=== PATIENT | male | born 1980 | race Caucasian/White ===

== ENCOUNTER 2016-07-20 22:08 | Emergency (ER) | payer SELFPAY ==
[2016-07-20 23:20] LABS: BASOPHIL# 0.1 X10e3 (0-0.3); BASOPHIL% 0.4 % (0-2.5); EOSINOPHIL% 0.3 % (0.0-7.0); HEMATOCRIT 39.7 % (38.0-50.0); HEMOGLOBIN 13.1 gm/dL (13.0-16.0); LYMPHOCYTE# 1.1 X10e3 (1.0-3.5); LYMPHOCYTE% 5.9 % (17.0-45.0); MEAN CELL VOLUME 91.9 FL (83-96); MEAN CORPUSCULAR HEMOGLOBIN 30.3 PG (28-34); MEAN PLATELET VOLUME 8.5 FL (6.5-11.5); MONOCYTE# 1.3 X10e3 (0-1.0); MONOCYTE% 6.6 % (3.0-12.0); NEUTROPHIL# 16.7 X10e3 (1.5-7.1); NEUTROPHIL% 86.8 % (40-75); PLATELET COUNT 197 X10e3 (140-420); RED BLOOD COUNT 4.32 X10e (3.90-5.60); RED CELL DISTRIBUTION WIDTH 13.6 % (11.0-15.5); WHITE BLOOD COUNT 19.2 X10e3 (4.0-10.5)
[2016-07-20 23:21] LABS: DIFF IND NO
[2016-07-20 23:37] LABS: ALBUMIN SERUM 3.7 g/dL (3.5-5.0); BILIRUBIN,TOTAL 1.2 mg/dL (0.2-2.0); CALCIUM SERUM 8.4 mg/dL (8.4-10.2); GLOM FILT RATE Estimated 95.1 mL/min (>60); POTASSIUM 3.2 mmol/L (3.5-5.1); PROTEIN TOTAL SERUM 6.4 g/dL (6.0-8.3)
[2016-07-20 23:42] LABS: AMPHETAMINE POS (NEG); BARBITURATES NEG (NEG); BENZODIAZEPINES NEG (NEG); COCAINE NEG (NEG); MARIJUANA POS (NEG); OPIATES NEG (NEG); TRICYCLIC ANTIDEPRESSANTS NEG (NEG); U METHADONE NEG (NEG)
== END 2016-07-21 03:40 | disposition hospice, home (50) ==
LOC: SED 22:08
PROVIDERS: Nurse Practitioner
DX: L03.113 Cellulitis of right upper limb (principal); Z88.1 Allergy status to other antibiotic agents; Z88.2 Allergy status to sulfonamides
CPT/HCPCS: 36415; 80053; 80307; 83605; 85025; 87040; 96374; 96375; 99285; J1885

== ENCOUNTER 2016-08-30 15:55 | Inpatient (IN) | payer OTHER ==
--- NOTE | ~2016-08-30 | HP ---
Unit #: [id number] #: [id number] Patient: PRICILA BRAR [id number] [place] [address] [id number] MR#: [id number] NAME: PRICILA BRAR. ROOM: P204 Age: 36 Sex: M Admission Date: 08/30/2016 : 1980 Attending Physician: Stephen Rod M.D. Admitting Physician: Stephen Rod M.D. Primary Care Physician: Primary Care Physician No HISTORY AND PHYSICAL HISTORY OF PRESENT ILLNESS Patient is a 36-year-old male admitted to [address] [place] [address] on 08/30/2016 for heroin abuse. PAST MEDICAL HISTORY Polysubstance abuse. PAST SURGICAL HISTORY I and D of an abscess. ALLERGIES Bactrim. SOCIAL HISTORY Patient is unemployed. He denies alcohol and tobacco use. He uses heroin, methamphetamines and benzodiazepines on a daily basis. FAMILY HISTORY Noncontributory. REVIEW OF SYSTEMS CONSTITUTIONAL: No fever or chills. HEENT: Denies any sore throat, ear pain or runny nose. CARDIOVASCULAR: Denies chest pain, irregular heart rhythm or palpitations. CHEST: Denies shortness of breath or cough. No hemoptysis. GASTROINTESTINAL: Denies nausea, vomiting, diarrhea or chronic constipation. ENDOCRINE: Denies history of increased thirst or urination. No recent significant weight loss or gain. GENITOURINARY: Denies dysuria, frequency, or hematuria. SKIN: Denies any rashes. HEMATOLOGIC: Denies history of increased bleeding or bruising. MUSCULOSKELETAL: Denies any hot, swollen joints. No generalized muscle pain. NEUROLOGIC: Denies problems with vision or speech. No frequent, severe headaches. No numbness, tingling or weakness in any extremities. Denies loss of bladder or bowel control. CURRENT MEDICATIONS Patient is not on any home medications. PHYSICAL EXAMINATION GENERAL: He is awake, alert, oriented, in no acute distress. Unit #: [id number] #: [id number] Patient: PRICILA BRAR VITAL SIGNS: Temperature 99.1, heart rate 115, respirations 20, blood pressure 134/85. HEIGHT: 5 feet 10. WEIGHT: 200 pounds. SKIN: He has a bandage on his right arm. HEENT: Normocephalic. TMs not viewed. Oral and nasal passages clear. Conjunctivae clear. PERRLA. EOMs intact. NECK: Supple without lymphadenopathy or thyromegaly. HEART: Regular rate and rhythm without murmur. LUNGS: Clear. ABDOMEN: Soft, nontender. : Not done. EXTREMITIES: No evidence of cyanosis, clubbing or edema. Moves all without focal deficit. NEUROLOGICAL: Grossly within normal limits. Cranial Nerves: II: Visual argueta are intact. III, IV AND : Extraocular movements are intact. Pupils are equal, round and reactive to light. V: Facial sensation is grossly normal. VII: Facial movements and expression are normal. VIII: Auditory acuity grossly intact. IX, X: Uvula is midline. Phonation is normal. XI: Patient shrugs shoulders and turns head normally. XII: Tongue protrudes in the midline. Sensory and Motor Function: Sensory and motor sensation is grossly normal. Motor: moves all extremities well. Coordination: Gait is normal. Deep Tendon Reflexes: Intact. IMPRESSION 1. Psychiatric admission. 2. Polysubstance abuse. RECOMMENDATIONS PSYCHIATRIC: Per psychiatrist. MEDICAL: No contraindications to participate in facility's activities. MEDICAL PROGNOSIS Good. MEDICAL CONDITION Stable. Dictated by... Reinaldo Hu/ortega TD: 08/31/2016 18:02 JOB #: [id number] Unit #: [id number] #: [id number] Patient: PRICILA BRAR HISTORY AND PHYSICAL Page 1 of 1 X TAMI LEMUS APRN HISTORY AND PHYSICAL
--- NOTE | ~2016-08-30 | DS ---
Unit #: [id number] #: [id number] Patient: PRICILA BOOTH [id number] [facility] [address] [place] [address] [id number] MR#: [id number] NAME: PRICILA BOOTH. ROOM: P206 Age: 36 Sex: M Admission Date: 08/30/2016 : 1980 Discharge Date: 09/02/2016 Attending Physician: Stephen Rod M.D. Primary Care Physician: Primary Care Physician No DISCHARGE SUMMARY REASON FOR ADMISSION Mr. Booth is a 36-year-old man, who reports ongoing use of heroin and the need to detox. He had some depression, but no suicidal ideation, and was admitted for stabilization. LABORATORY DATA Please see hospital chart. HOSPITAL COURSE The patient was admitted and placed on the opioid detox protocol. He had no significant adverse side effects from his detox and he showed minimal participation in unit groups and activities during his inpatient care. He declined our social science teacher's assistance with discharge planning, stating he would go to NA meetings as recommended. At this point, he was discharged to the community in stable condition. DISCHARGE DIAGNOSES AXIS I: Opioid dependence. AXIS II: No diagnosis. AXIS III: None. AXIS IV: AXIS V: DISCHARGE INSTRUCTIONS Follow up with NA meetings, 90 meetings in 90 days. DISCHARGE MEDICATIONS None. CONDITION AT DISCHARGE Fair. PROGNOSIS Fair. DIET AND ACTIVITY Ad sade. Dictated by... Stephen Rod M.D. Unit #: [id number] #: [id number] Patient: PRICILA BOOTH MR/modl TD: 10/31/2016 02:22 JOB #: [id number] DISCHARGE SUMMARY Page 1 of 1 X Stephen Rod MD X DISCHARGE SUMMARY
--- NOTE | ~2016-08-30 | PA ---
Unit #: [id number] #: [id number] Patient: PRICILA BRAR [id number] [facility] [address] [place] [address] [id number] MR#: [id number] NAME: PRICILA BRAR. ROOM: P206 Age: 36 Sex: M Admission Date: 08/30/2016 : 1980 Date of Assessment: 08/31/2016 Attending Physician: Stephen Rod M.D. Admitting Physician: Stephen Rod M.D. Primary Care Physician: Primary Care Physician No PSYCHIATRIC ASSESSMENT DATE OF ASSESSMENT 08/31/2016. INFORMANTS Patient, reliable; OLOP, reliable. CHIEF COMPLAINT Opioid dependence. HISTORY OF PRESENT ILLNESS Pricila is a 36-year-old man, who reports he is having severe depression in the context of opioid and heroin withdrawal. He says "I've been clean before and I just want to get back to being clean." He had no suicidal ideation, intent, or plan and was admitted for opioid detox. PAST PSYCHIATRIC HISTORY One previous admission to this facility under the care of Dr. Aparicio. He has also been admitted to the [facility] for chemical dependence treatment. FAMILY PSYCHIATRIC HISTORY There is a significant family history of chemical dependence in his father and brother. SOCIAL HISTORY The patient denied history of childhood abuse or neglect. 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 PAST MEDICAL HISTORY No chronic medical problems. MEDICATIONS None currently. ALLERGIES No known medication allergies. SUBSTANCE USE HISTORY The patient has a history of participated in 12-step programming. Please see current drug use for details. ASSETS AND LIABILITIES Unit #: [id number] #: [id number] Patient: PRICILA BRAR The patient is in general health and reports voluntarily for treatment. Liabilities include difficulty maintaining sobriety, unstable housing and income. ADMITTING DIAGNOSES AXIS I: Opioid dependence with withdrawal, uncomplicated, F11.23. AXIS II: No diagnosis. AXIS III: None acute. AXIS IV: AXIS V: PSYCHIATRIC PLAN Pricila was admitted and placed on the opioid detox protocol. He will enroll in psychotherapy groups and activities. TREATMENT GOALS Resolution of intoxication, improvement in insight, and improvement in coping skills. DISCHARGE PLAN [facility]. ESTIMATED LENGTH OF STAY 5 days. Dictated by... Yvonne Penn/ervin TD: 10/31/2016 01:51 JOB #: [id number] PSYCHIATRIC ASSESSMENT Page 1 of 1 X Stephen Rod MD PSYCHIATRIC ASSESSMENT
== END 2016-09-02 12:20 | disposition home or self-care (01) | DRG 897 ==
LOC: P2S 15:55
PROC: HZ2ZZZZ Detoxification Services for Substance Abuse Treatment (ICD-10-PCS; principal; 2016-08-30)
DX: F11.23 Opioid dependence with withdrawal (principal); Z56.0 Unemployment, unspecified